=== PATIENT | male | born 2000 | race Caucasian/White ===

== ENCOUNTER 2025-03-26 15:10 | Emergency (ER) | payer OTHER, SELFPAY ==
[2025-03-26] VITALS (15 sets, daily range): BP systolic 124–153; BP diastolic 54–116; PULSE 73–109; RESP 6–28; TEMP 37.2; O2SAT 94–100; BMI 20.4
--- NOTE | 2025-03-26 15:17 | CRLHL7_ITS ---
For Patients: As a result of the Cures Act, medical imaging exams and procedure reports are released immediately into your electronic medical record. You may view this report before your referring provider. If you have questions, please contact your health care provider. INDICATION: Injury. Dislocation. FINDINGS: Three views of the left elbow show a posterior elbow joint dislocation. No evidence of acute fracture. No other bony or soft tissue abnormalities identified. Dictated by Delfino Rios MD @ 03/26/2025 4:11:00 PM Dictated by: Delfino Rios MD @ 03/26/2025 16:11:21 (Electronically Signed)
[2025-03-26] MEDS: HYDROmorphone 0.5 mg/0.5 ml inj 0.3 MG IVP (15:25)
--- NOTE | 2025-03-26 15:26 | ED_ITS ---
HPI - General Adult General Chief complaint: Fall/Minor Trauma Stated complaint: elbow injury Time Seen by Provider: 03/26/25 15:12 History of Present Illness HPI narrative: This 24-year-old male comes in with an injury to his left elbow. He was wrestling and attempting to lift somebody when he injured his elbow. He comes in with obvious deformity typical of a dislocation. Related Data Previous Rx's ?Medication ?Instructions ?Recorded ketorolac 10 mg tablet 10 mg PO TID 5 days #15 tabs 03/26/25 Allergies Allergy/AdvReac Type Severity Reaction Status Date / Time No Known Drug Allergies Allergy Verified 03/26/25 15:13 Review of Systems Status of ROS: Reports: 10 or more systems reviewed and unremarkable except as noted in History and below Narrative: Constitutional: No fevers, no weight gain or loss. Eyes: No discharge. No vision changes. HENT: No congestion, no sore throat, no ear pain. Cardiovascular: No chest pain, no palpitations. Respiratory: No shortness of breath, no wheezes, no cough. Gastrointestinal: No abdominal pain, no vomiting, no diarrhea. Genitourinary: No dysuria, no hematuria. Musculoskeletal: Left elbow injury as described above. Skin: No rashes, no pruritis. Neurological: No dizziness, weakness, sensory change, speech change. Endo/Heme/Allergies: No bruising or bleeding. No polydipsia. Pysch: no suicidality, no anxiety, no insomnia. All other systems reviewed and are negative. Exam Narrative: Exam Narrative: Constitutional: Well-developed, well-nourished, no acute distress. HEENT: Normocephalic, atraumatic. Neck: Normal range of motion. Nontender. Supple. Heart: Intact distal pulses. Lungs: No chest discomfort. No wheezes, rhonchi, or rales. Abdomen: Nontender. Back: Normal range of motion. Extremities: Left elbow deformity typical of dislocation with reduced range of motion. Skin: Intact. No rash. Warm. No erythema or pallor. Neurologic: No altered sensation. No weakness. Alert and oriented. Psychiatric: No suicidality. No anxiety or depression. No insomnia. Nursing notes and vitals signs are reviewed. Const: Vital Signs, click to edit/add: Vital Signs - 24 hr 03/26/25 15:13 03/26/25 15:31 03/26/25 15:52 Temperature 98.9 F Pulse Rate 75 73 Pulse Rate [Pulse Oximeter] 89 Respiratory Rate 20 11 L Blood Pressure 138/111 H 130/108 H Blood Pressure [Ri ght Upper Arm] 124/82 Pulse Oximetry 100 100 100 Oxygen Delivery Me thod Room Air Oxygen Flow Rate 03/26/25 16:00 03/26/25 16:26 03/26/25 16:30 Temperature Pulse Rate 78 Pulse Rate [Pulse Oximeter] Respiratory Rate 12 28 H Blood Pressure 146/97 H Blood Pressure [Ri ght Upper Arm] Pulse Oximetry 99 100 Oxygen Delivery Me thod Nasal Cannula Nasal Cannula Oxygen Flow Rate 2 2 03/26/25 16:33 03/26/25 16:40 03/26/25 16:42 Temperature Pulse Rate 89 109 H 99 Pulse Rate [Pulse Oximeter] Respiratory Rate 16 24 6 L Blood Pressure 143/96 H 153/116 H 149/100 H Blood Pressure [Ri ght Upper Arm] Pulse Oximetry 98 100 100 Oxygen Delivery Me thod Nasal Cannula Intubated Intubated Oxygen Flow Rate 2 03/26/25 16:45 03/26/25 16:53 Temperature Pulse Rate 107 H 99 Pulse Rate [Pulse Oximeter] Respiratory Rate 13 14 Blood Pressure 137/54 L Blood Pressure [Ri ght Upper Arm] Pulse Oximetry 100 100 Oxygen Delivery Me thod Intubated Room Air Oxygen Flow Rate Course Vital Signs Vital signs: Initial Vital Signs Temperature 98.9 F 03/26/25 15:13 Temperature Source Temporal Artery Scan 03/26/25 15:13 Pulse Rate 89 03/26/25 15:13 Respiratory Rate 03/26/25 15:13 Blood Pressure 124/82 03/26/25 15:13 Blood Pressure Mean 96 03/26/25 15:13 Pulse Oximetry 100 03/26/25 15:13 Oxygen Delivery Method Room Air 03/26/25 15:13 Vital Signs Temperature 98.9 F 03/26/25 15:13 Pulse Rate 89 03/26/25 15:13 Respiratory Rate 20 03/26/25 15:13 Blood Pressure 124/82 03/26/25 15:13 Pulse Oximetry 100 03/26/25 15:13 Oxygen Delivery Method Room Air 03/26/25 15:13 Temperature 98.9 F 03/26/25 15:13 Pulse Rate 99 03/26/25 16:53 Respiratory Rate 14 03/26/25 16:53 Blood Pressure 137/54 L 03/26/25 16:53 Pulse Oximetry 100 03/26/25 16:53 Oxygen Delivery Method Room Air 03/26/25 16:53 Oxygen Flow Rate 2 03/26/25 16:33 Medications Administered Medications: Discontinued Medications Generic Name Dose Route Start Last Admin Trade Name Roly PRN Reason Stop Dose Admin Hydromorphone HCl 0.3 mg 03/26/25 15:21 03/26/25 15:25 Hydromorphone 0.5 Mg/0.5 Ml Inj IVP 03/26/25 15:22 0.3 mg ONCE ONE Administration Hydromorphone HCl 0.5 mg 03/26/25 16:16 03/26/25 16:21 Hydromorphone 0.5 Mg/0.5 Ml Inj IVP 03/26/25 16:17 0.5 mg ONCE ONE Administration Medical Decision Making MDM Narrative Medical decision making narrative: This 24-year-old male comes in with a injury to his left elbow. X-ray images show no sign of fracture but obvious dislocation. The patient states that he had a hamburger about an hour prior to arrival. I did contact Anesthesiology to assist in reducing his dislocated elbow. He received total of 0.8 mg of Dilaudid prior to this procedure. At the time of the procedure he did also receive some fentanyl along with succinylcholine and propofol. I was able to reduce his elbow rather easily and this occurred even before the patient was intubated. But in order to protect his airway he was briefly intubated for approximately 5 minutes. Repeat x-ray post reduction shows proper alignment by my review. The patient was placed in a sling. He received a prescription for Toradol. Imaging Data XR L Elbow: Radiologist's impression: Three views of the left elbow show a posterior elbow joint dislocation. No evidence of acute fracture. No other bony or soft tissue abnormalities identified. Discharge Plan Discharge Clinical Impression: Dislocated elbow Patient Disposition: Home w/ Parent or Adult Condition: Improved Prescriptions: New ketorolac 10 mg tablet 10 mg PO TID 5 Days Qty: 15 0RF Follow Up/Referrals: Provider,Not a Local [Primary Care Provider, Family Practice] Stand Alone Forms: [employer] Info Instructions
[2025-03-26] MEDS: HYDROmorphone 0.5 mg/0.5 ml inj IVP (16:21)
[2025-03-26] MEDS: 0.9 % SODIUM CHLORIDE 1000 ml 1,000 ML IV (16:30)
--- NOTE | 2025-03-26 16:41 | CRLHL7_ITS ---
For Patients: As a result of the Cures Act, medical imaging exams and procedure reports are released immediately into your electronic medical record. You may view this report before your referring provider. If you have questions, please contact your health care provider. INDICATION: Postreduction TECHNIQUE: Single lateral view of the left elbow FINDINGS/IMPRESSION: Normal alignment of the elbow limited by single lateral view. Dictated by Suha Rios MD @ 03/26/2025 5:53:34 PM (Electronically Signed)
--- OUTSIDE RECORDS SUMMARY | 2025-03-26 16:44 | XMS_ITS | Clinical Summary ---
Author Organization [facility] Address [address] [place] [id number] Care Team Providers Care Tap Puller Name Role Phone Germán Whitley MD Primary Care Provider [phone] Source Comments You are receiving this document as you are listed as the primary care provider,follow-up provider, or the patient has been referred to you for consultation.This is in compliance with the Medicare and[facility] EHR Incentive Program,which states Providers who transition their patient to another setting of careor provider of care or refers their patient to another provider of care shouldprovide summary care record for each transition of care or referral. [facility] Allergies No known active allergies Medications riboflavin (VITAMINB-2) 100 MG tabletIndication s:Chronic migraine with aura without status migrainosus, not intractable Take 1 Tablet (100 mg) by mouth daily. 90 Tablet 5 Active naproxen (NAPROSYN) 500 MG tabletIndication s:Chronic migraine with aura without status migrainosus, not intractable Take 1 Tablet (500 mg) by mouth two times daily as needed for Pain. 60 Tablet 11 5 Active atenolol (TENORMIN) 25 MG tabletIndication s:Chronic migraine with aura without status migrainosus, not intractable Take 1 Tablet (25 mg) by mouth daily. 90 Tablet 3 5 12/20/19 26 Active SUMAtriptan (IMITREX) 50 MG tabletIndication s:Chronic migraine with aura without status migrainosus, not intractable Take 1 Tablet (50 mg) by mouth as needed for Migraine. at onset of headache; may repeat one time in 2 hours if headache recurs. 9 Tablet 3 5 Active prochlorperazine (COMPAZINE) 5 MG tabletIndication s:Chronic migraine with aura without status migrainosus, not intractable Take 1 Tablet (5 mg) by mouth every 6 hours as needed for Nausea or Vomiting. 30 Tablet 5 Active Active Problems Problem Noted Date Diagnosed Date Elevated blood pressure read ing in office without diagnosis of hypertension 12/20/2024 Chronic migraine with aura w ithout status migrainosus, not intractable 12/20/2024 Immunizations Immunization Administration Dates Next Due 4vHPV (Gardasil) 01/10/2015,11/22/2013 DTaP 04/16/2007,08/21/2003 Flu Vac (3+ yrs) 10/02/2003,08/21/2003 [id number] 12/11/2009,10/15/2009 HepA Ped/Adol (1-18 yrs) 06/18/2012,04/16/2007 Hib/HBV 08/21/2003 IPV (Polio) 04/16/2007,10/02/2003 Influenza, Unspecified Formulation 12/11/2017(De ferred: Other) MCV4 Menveo 2m.+ (two vial) 06/14/2018, 4 MMR 04/16/2007 Tdap 05/12/2022,11/22/2013 Varicella 04/16/2007 Family History Medical History Relation Name Comments Asthma Father nasal polyps Father Diabetes, Type II Mother Hypertension Mother Multiple Sclerosis Mother chronic migraines Mother substance abuse Mother Cancer, Melanoma Maternal Grandfather No Known Problems Maternal Grandmother No Known Problems Paternal Grandfather No Known Problems Paternal Grandmother Relation Name Status Comments Father Alive Mother Brother Matias Alive Maternal Grandfather Maternal Grandmother Alive Paternal Grandfather Paternal Grandmother Alive Social History Tobacco Use Types Packs/Day Years Used Date Smoking Tobacco: Never Smokeless Tobacco: Never Tobacco Cessation:Counseling Given: Not Answered Alcohol Use Standard Drinks/Week Comments Yes 1 (1 standard drink = 0.6 oz pur e alcohol) Sex and Gender Information Value Date Recorded Sex Assigned at Not on file Legal 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 Gender Identity Not on file Sexual Orientation Not on file Last Filed Vital Signs Vital Sign Reading Time Taken Comments Blood Pressure 136/74 12/20/2024 10:05 AM MIMEOGRAPH OPERATOR Pulse 78 12/20/2024 10:05 AM MIMEOGRAPH OPERATOR Temperature 36.4 C (97.5 F) 11/19/2020 8:05 AM MIMEOGRAPH OPERATOR Respiratory Rate 18 11/19/2020 8:05 AM MIMEOGRAPH OPERATOR Oxygen Saturation 98% 11/19/2020 8:05 AM MIMEOGRAPH OPERATOR Inhaled Oxygen Concentration - - Weight 58.5 kg (129 lb) 12/20/2024 9:56 AM MIMEOGRAPH OPERATOR Height - - Body Mass Index - - Plan of Treatment Health Maintenance Due Date Last Done Comments Hep C Screening (Preventive Services) 2002 MenB Immunization Discussion 2002 HepB Vaccine (2) 09/18/2003 08/21/2003 Varicella Vaccine (2 of 2 - 2-dose childhood series) 07/09/2007 04/16/2007 IPV (Polio) Vaccine (3 of 3 - 4-dose series) 10/16/2007 04/16/2007, 10/02/2003 HIV Screening (Preventive Services) 2018 Adult Preventive Visit 2020 COVID-19 Vaccine (1 - season) 2024 Influenza Vaccine (Season Ended) 2025 10/02/2003, 08/21/2003 DTaP/Tdap/Td Vaccine (5 - Tdap) 05/12/2032 05/12/2022, 11/22/2013, 04/16/2007, Additional history exists Zoster/Shingles Vaccine (1 of 2) 2052 Hib Vaccine Completed 08/21/2003 HepA Vaccine Completed 06/18/2012, 04/16/2007 HPV Vaccine Completed 01/10/2015, 11/22/2013 MCV4 Vaccine Completed 06/14/2018, 11/22/2013 Pneumococcal Vaccine Aged Out No long er eligible based on patient's age to complete this topic Insurance [employer] INS[employer] Care Teams Tap Puller Relationship Specialty Start Date End Date Germán [place] [id number] [place] [address] PCP - General Family Practice 12/14/24
--- OUTSIDE RECORDS SUMMARY | 2025-03-26 16:44 | XMS_ITS | Clinical Summary ---
Author Organization [facility] Address [address] [place] [id number] Care Team Providers Care Sheet Rock Layer Name Role Phone None Primary Care Provider Unavailabl e Allergies No known active allergies Medications ondansetron (ZOFRAN ODT) 8 mg disintegrating tabletIndications:M igraine without aura and without status migrainosus, not intractable Place 1 Tablet (8 mg) on the tongue every 6 hours if needed for Nausea/Vomi ting (migraine). 30 Tablet 4 Active ondansetron (ZOFRAN ODT) 8 mg disintegrating tabletIndications:F ood poisoning Place 1 Tablet (8 mg) on the tongue every 6 hours if needed for Nausea/Vomi ting. 30 Tablet 5 Active Active Problems No known active problems Immunizations Immunization Administration Dates Next Due DTaP 04/16/2007,08/21/2003 HIB-HepB (Comvax) 08/21/2003 Hepatitis A (Peds) 06/18/2012,04/16/2007 Human Papilloma Virus Vaccine 01/10/2015, 014 Inactivated Polio Vaccine 04/16/2007,10/02/2003 Influenza A (H1N1), Inactivated 12/11/2009,10/15 Influenza, IIV3 (Age >=3 years) 10/02/2003,08/21 MENINGOCOCCAL VACCINE 2 VIAL [id number] (MENVEO) 0 06/14/2018,11/22/2013 MMR 04/16/2007 Tdap 05/12/2022,11/22/2013 Varicella Vaccine 04/16/2007 Social History Tobacco Use Types Packs/Day Years Used Date Smoking Tobacco: Every Day Cigarettes Smokeless Tobacco: Never Alcohol Use Standard Drinks/Week Comments Not Currently 0 (1 standard drink = 0.6 oz pur e alcohol) Sex and Gender Information Value Date Recorded Sex Assigned at Not on file Legal Sex Male 4:36 PM BLACK LEATHER TRIMMER Gender Identity Not on file Sexual Orientation Not on file Obstetrics History Last Filed Vital Signs Vital Sign Reading Time Taken Comments Blood Pressure 143/83 12/01/2024 12:31 PM BLACK LEATHER TRIMMER Pulse 78 12/01/2024 12:31 PM BLACK LEATHER TRIMMER Temperature 37.2 C (99 F) 12/01/2024 12:31 PM BLACK LEATHER TRIMMER Respiratory Rate 18 12/01/2024 12:3 1 PM BLACK LEATHER TRIMMER Oxygen Saturation 98% 12/01/2024 12: 31 PM BLACK LEATHER TRIMMER Inhaled Oxygen Concentration - - Weight 54.8 kg (120 lb 12.8 oz) 024 11:22 AM BLACK LEATHER TRIMMER Height 170.2 cm (5' 7) 12/28/2023 11:2 2 AM BLACK LEATHER TRIMMER Body Mass Index 18.92 12/28/2023 11:22 AM BLACK LEATHER TRIMMER Plan of Treatment Health Maintenance Due Date Last Done Comments Hepatitis B series for 19+ ( 2 of 3 - 3-dose series) 09/18/2003 08/21/2003 Depression screening for age 12+ 2014 HIV for age 15-65 2017 Hepatitis C screening for age 18-79 2020 Pneumococcal series for age 6-49 (1 of 2 - PCV) 2021 COVID-19 vaccine series ( season) 2024 BMI (ht and wt on same day) for age 18+ 12/27/2024 0 12/28/2023, 07/22/2022 Influenza Vaccine (Season Ended) 2025 10/02/20 03, 08/21/2003 Tetanus booster 05/12/2032 05/12/2022, 11/22/2013 HPV series for age 9-26 Completed 01/10/2015, 11/22 Tdap Completed 05/12/2022, 11/22/2013 Insurance [employer] Care Teams Sheet Rock Layer Relationship Specialty Start Date End Date None . PCP - General 09/16/17
--- OUTSIDE RECORDS SUMMARY | 2025-03-26 16:44 | XMS_ITS | Clinical Summary ---
Author Organization [facility] Address [address] [place] [address]. [place] [address] Care Team Providers Care Chemical Librarian Name Role Phone Jeff Mccracken MD Primary Care Provider Allergies No known active allergies Medications albuterol (PROAIR HFA/PROVENTIL HFA/VENTOLIN HFA) 108 (90 Base) MCG/ACT inhaler Inhale 2 puffs into the lungs every 4 hours as needed for other (Cough) 18 g 11/02/2021 Active benzonatate (TESSALON) 100 MG capsule Take 1 capsule (100 mg) by mouth 3 times daily as needed for cough 15 capsule 11/02/2021 Active fluticasone (FLONASE) 50 MCG/ACT nasal spray Beaver 1 spray into both nostrils daily 11 mL 12/28/2023 Active amoxicillin-cla vulanate (AUGMENTIN) 875-125 MG tablet Take 1 tablet by mouth 2 times daily 20 tablet 12/28/2023 Active Immunizations Immunization Administration Dates Next Due TDAP (Adacel,Boostrix) 05/12/2022 Social History Tobacco Use Types Packs/Day Years Used Date Smoking Tobacco: Never Assessed Adolescent Education Answer Date Record ed Getting School Help Needed Not on file 08/11 Sex and Gender Information Value Date Recorded Sex Assigned at Not on file Legal Sex Male 4:22 AM CONTRACT ASSISTANT Gender Identity Not on file Sexual Orientation Not on file Last Filed Vital Signs Vital Sign Reading Time Taken Comments Blood Pressure 144/77 12/28/2023 3:15 PM CONTRACT ASSISTANT Pulse 75 12/28/2023 3:15 PM CONTRACT ASSISTANT Temperature 37.3 C (99.1 F) 12/28/2023 1:03 PM CONTRACT ASSISTANT Respiratory Rate 18 12/28/2023 3:15 PM CONTRACT ASSISTANT Oxygen Saturation 98% 12/28/2023 3:15 PM CONTRACT ASSISTANT Inhaled Oxygen Concentration - - Weight 54.4 kg (120 lb) 12/28/2023 1:04 PM CONTRACT ASSISTANT Height 170.2 cm (5' 7) 12/28/2023 1:04 PM CONTRACT ASSISTANT Body Mass Index 18.79 12/28/2023 1:04 PM CONTRACT ASSISTANT Plan of Treatment Health Maintenance Due Date Last Done Comments ADVANCE CARE PLANNING 2002 ANNUAL REVIEW OF HM ORDERS 2002 HEPATITIS B VACCINE (2 of 3 - 3-dose series) 09/18/2003 08/21/2003 YEARLY PREVENTIVE VISIT 2005 HIV SCREENING 2017 MENINGITIS B VACCINE (1 of 2 - Standard) 2018 HEPATITIS C SCREENING 2020 COVID-19 VACCINE (1 - season) 2024 PHQ-2 (once per calendar year) 2024 INFLUENZA VACCINE (Season Ended) 2025 12/11/2009, 10/15/2009, 10/02/2003, Additional history exists DTAP/TDAP/TD VACCINE (5 - Td or Tdap) 05/12/2032 05/12/2022, 11/22/2013, 04/16/2007, Additional history exists ZOSTER VACCINE (1 of 2) 2052 HPV VACCINE Completed 01/10/2015, 11/22/2013 MENINGITIS VACCINE Completed 06/14/2018, 11/22/2013 PNEUMOCOCCAL VACCINE: PEDIATRICS (0 to 5 YEARS) AND AT-RISK PATIENTS (6 to 49 YEARS) Aged Out No longer eligible based on patient's age to complete this topic Care Teams Chemical Librarian Relationship Specialty Start Date End Date Jeff Mccracken MD [facility] [address] [place] [address] PCP - General 06/02/12
--- NOTE | 2025-03-26 17:06 | P.ANES_ITS ---
Anesthesia Charges Start Date/Time Anesthesia Start Date: 03/26/25 Anesthesia Start Time: 16:30 Stop Date/Time Anesthesia Stop Date: 03/26/25 Anesthesia Stop Time: 17:00 Summary Emergency: ACID RETORT OPERATOR Coding CPT Codes CPT Codes: ANESTH UPPR ARM PROCEDURE - 44493 ([id number]) P1 - NORMAL HEALTHY PATIENT, QZ - ACID RETORT OPERATOR SVC W/O INCIDENT ENGINEER BY Additional Codes: Summary - Emergency: ACID RETORT OPERATOR ([id number])
--- NOTE | 2025-03-26 17:06 | W.ANESCHARGE ---
Anesthesia Charges Start Date/Time Anesthesia Start Date: 03/26/25 Anesthesia Start Time: 16:30 Stop Date/Time Anesthesia Stop Date: 03/26/25 Anesthesia Stop Time: 17:00 Summary Emergency: TOWER DIRECTOR Coding CPT Codes CPT Codes: ANESTH UPPR ARM PROCEDURE - 27960 ([id number]) P1 - NORMAL HEALTHY PATIENT, QZ - TOWER DIRECTOR SVC W/O CLUBHOUSE MANAGER BY Additional Codes: Summary - Emergency: TOWER DIRECTOR ([id number])
== END 2025-03-26 17:41 | disposition home or self-care (01) ==
PROVIDERS: Emergency Provider Emergency Medicine Emergency Medical Services
DX: S53.125A Posterior dislocation of left ulnohumeral joint, initial encounter (principal); Y93.72 Activity, wrestling
CPT/HCPCS: 24605; 01730; 73070; 96374; 96375; 96376; 99140; 99284; 99291; J0330; J1171; J2250; J2704; J3010; J7030